=== PATIENT | male | born 1985 | race Caucasian/White ===

== ENCOUNTER 2018-07-09 01:10 | Emergency (ER) | payer OTHER ==
[2018-07-09 01:37] VITALS: BP 130/69; PULSE 82; TEMP 98.4; BMI 29.7
[2018-07-09] MEDS ORDERED: IBUPROFEN 600 MG TABLET (FP) PO ONE (02:22)
--- NOTE | 2018-07-09 02:42 | PDOC ---
History of Present Illness - General Chief Complaint: Pain Stated Complaint: CHEST INJURY/KNEE PAIN Time Seen by Provider: 07/09/18 01:51 EST - History of Present Illness Initial Comments: Sami Grant is an otherwise healthy 33yo man who presents with left-sided pleuritic rib pain and left knee pain following an injury while playing softball earlier today. He reports that he was watching for the ball and ran at full speed into a soccer goal post. He states that his head was turned to look behind him, and he did not even attempt to slow or stop before hitting the post. Mr Grant states that the entire left side of his body hurts, but he has the most pain in his left knee and left ribs. Mr Grant is able to walk, but he has significant pain in his left knee. Past History - Past Medical History Allergies/Adverse Reactions: Allergies Allergy/AdvReac Type Severity Reaction Status Date / Time No Known Allergies Allergy Verified 07/09/18 01:35 EST Home Medications: Ambulatory Orders No Home Medications 0 dose .ROUTE UTDICT 01/02/13 - Suicide/Smoking/Psychosocial Hx Smoking Status: Yes Smoking History: Unknown if ever smoked Have you smoked in the past 12 months: No Number of Cigarettes Smoked Daily: 0 Information on smoking cessation initiated: No Hx Alcohol Use: No Drug/Substance Use Hx: No Substance Use Type: None Review of Systems - Review of Systems Comments:: General: No fevers, no chills, no weight or appetite change, no malaise HEENT: No changes in vision, no changes in hearing, no congestion, no sore throat CV: No chest pain, no palpitations, no LE edema Pulm: No SOB, no cough, no wheezing GI: No nausea or vomiting, no change in bowel habits, no melena : No frequency, no urgency, no dysuria Musc: See HPI Skin: No rash, no lesions, no erythema Endo: No excessive thirst, no heat/cold intolerance Heme: No unusual bruising or bleeding, no swollen glands Neuro: No syncope, no numbness/tingling, no focal weakness Vasc: No claudication Psych: No recent change in mood, no SI or HI *Physical Exam - Vital Signs Last Vital Signs Temp Pulse Resp BP Pulse Ox 98.4 F 82 18 130/69 98 07/09/18 01:36 EST 07/09/18 01:36 EST 07/09/18 01:36 EST 07/09/18 01:36 EST 07/09/18 01:36 EST - Physical Exam Comments: General: Comfortable, no acute distress HEENT: PERRL, EOMI, MMM, voice normal, normal neck ROM, no LAD Cards: RRR, no murmur appreciated Pulm: Comfortable on room air, clear to auscultation bilaterally. TTP along left anterior lower ribs. No bruising, erythema, swelling, or abrasion. Abd: Soft, nontender, nondistended : No CVA tenderness Ext: LLE with visible mild swelling at the anterior knee along the inferior patella. TTP. No erythema, no bruising. No laxity or instability in the knee, no palpable fracture or deformity. Knee flexion limited by pain past ~80 degrees. Vasc: Extremities WWP. Palpable radial and pedal pulses bilaterally Skin: Normal color, no rashes or lesions Neuro: A&Ox3, CN grossly intact, normal speech, motor/sensory grossly intact and symmetric Psych: Mood appropriate to situation ED Treatment Course - RADIOLOGY Radiology Studies Ordered: Category Date Time Status CHEST PA & LAT [RAD] Stat Radiology 07/09/18 02:06 Ordered KNEE 3 POS-LEFT [RAD] Stat Radiology 07/09/18 02:06 Ordered Medical Decision Making - Medical Decision Making Sami Grant is a 33yo otherwise healthy man who presents to the ED following a left knee and left chest wall injury during a softball game today. - Able to walk, unlikely to be a knee fracture. Xrays of his knee ordered to r/ o - CXR and rib xrays ordered to evaluate for rib fractures or pulmonary injury including pneumothorax or effusion - Ibuprofen and percocet ordered for pain. 07/09/18 04:23 - Xrays reviewed. No fracture, pneumothorax, or pulmonary effusion - Discussed xrays with Mr Grant. Plan to discharge home with orthopedic follow up. Discussed home pain control (rest, ice, elevation, NSAIDs), follow up, and return precautions. - Mr Grant states understanding and agreement with this plan. Discussed with Dr Mcmanus. Dana Barth PGY1 *DC/Admit/Observation/Transfer Diagnosis at time of Disposition: Knee injury Qualifiers: Encounter type: initial encounter Laterality: left Qualified Code(s): S89.92XA - Unspecified injury of left lower leg, initial encounter Contusion of rib on left side Qualifiers: Encounter type: initial encounter Qualified Code(s): S20.212A - Contusion of left front wall of thorax, initial encounter - Discharge Dispostion Disposition: HOME Condition at time of disposition: Stable Decision to Admit order: No - Referrals Referrals: Korina Clark MD [Primary Care Provider] - Chema Gaspar DO [Staff Physician] - - Patient Instructions Printed Discharge Instructions: DI for Rib Contusion, DI for Knee Pain Additional Instructions: Discharge Instructions: - You were seen in the ED for a knee injury and rib pain - Xrays showed that there is no fracture or broken bones - For pain control at home, you may take 600mg or 800mg of ibuprofen (Advil, Motrin) every 6-8 hours as needed for the next 2-3 days. If you have significant pain after a few days, make an appointment to see your primary physician or follow up with orthopedics. Make sure that you take ibuprofen with food to prevent upset stomach. - For your rib pain, you may buy lidocaine patches at any pharmacy if the pain prevents you from taking a normal deep breath. These patches may be applied for 12 hours per day. - Apply ice to your knee for 20 minutes every hour - Keep your knee elevated, ideally above the level of your heart - Rest your knee as much as possible. You have been given crutches for comfort and pain control. - You have been referred to orthopedic surgery for follow up. Make an appointment for the next 2-3 days. - Seek immediate medical care if you have severe or worsening knee pain, you are unable to walk at all (even with a limp or pain is OK), or you have severe or worsening shortness of breath. - Post Discharge Activity Forms/Work/School Notes: Back to Work
== END 2018-07-09 04:32 | disposition home or self-care (01) ==
LOC: JER 01:10
DX: S20.212A Contusion of left front wall of thorax, initial encounter (principal); S89.82XA Other specified injuries of left lower leg, initial encounter; W22.8XXA Striking against or struck by other objects, initial encounter; Y93.64 Activity, baseball; Y92.320 Baseball field as the place of occurrence of the external cause; Y99.8 Other external cause status
CPT/HCPCS: 71046-TC-FY; 71101-TC-FY; 73562-TC-LT-FY; 99282-25

== ENCOUNTER 2020-10-27 04:15 | Day surgery (SDC) | payer BC ==
[2020-10-23 11:23] VITALS: BMI 31.3
[2020-10-27] MEDS ORDERED: MIDAZOLAM HCL 2 MG/2 ML SINGLE DOSE VIAL ONE ×2 (11:23)
[2020-10-27] MEDS ORDERED: PROPOFOL 20 ML ONE (11:32)
[2020-10-27 12:35] VITALS: TEMP 97.7
[2020-10-27 14:15] VITALS: BP 126/62; PULSE 55
== END 2020-10-27 14:15 | disposition home or self-care (01) ==
LOC: JASU-SURG 04:15
PROVIDERS: ATTEND Urology
PROC: 0TF3XZZ Fragmentation in Right Kidney Pelvis, External Approach (ICD-10-PCS; principal; 2020-10-27 10:30)
DX: N20.0 Calculus of kidney (principal)

== ENCOUNTER 2021-03-30 04:33 | Day surgery (SDC) | payer BC ==
[2021-03-26 16:36] VITALS: BMI 31.3
[2021-03-30] MEDS ORDERED: MIDAZOLAM HCL 2 MG/2 ML SINGLE DOSE VIAL ONE ×3 (10:24→10:51)
[2021-03-30] MEDS ORDERED: KETOROLAC TROMETHAMINE 30 MG/1 ML VIAL ONE (10:41)
[2021-03-30] MEDS ORDERED: DEXAMETHASONE SOD PHOSPHATE 4 MG/1 ML VIAL ONE (10:41)
[2021-03-30 14:16] VITALS: BP 126/77; PULSE 54; TEMP 97.6
== END 2021-03-30 13:30 | disposition home or self-care (01) ==
LOC: JASU-SURG 04:33
PROVIDERS: ATTEND Urology
PROC: 0TF4XZZ Fragmentation in Left Kidney Pelvis, External Approach (ICD-10-PCS; principal; 2021-03-30 11:00)
DX: N20.0 Calculus of kidney (principal)

== ENCOUNTER 2023-03-01 13:14 | Emergency (ER) | payer BC, OTHER ==
[2023-03-01 13:19] VITALS: BP 135/75; PULSE 56; RESP 18; TEMP 98.8; BMI 32.3
[2023-03-01] MEDS ORDERED: SODIUM CHLORIDE 1,000 ML IV STA (14:09)
[2023-03-01 15:20] LABS: BASO % 0.7 % (0-2.0); EOS % 4.7 % (0-4.5); HEMATOCRIT 45.1 % (35.4-49); HEMOGLOBIN 15.1 GM/dL (11.7-16.9); LYMPH % 40.1 % (8-40); MCH 29.4 pg (25.7-33.7); MCHC 33.5 g/dl (32.0-35.9); MEAN CELL VOLUME 87.7 fl (80-96); MEAN PLT VOLUME 11.6 fl (7.5-11.1); MONO % 7.6 % (3.8-10.2); NEUT % 46.9 % (42.8-82.8); PLATELET COUNT 211 10^3/uL (134-434); RBC 5.14 M/mm3 (4.00-5.60); RDW 13.1 % (11.9-15.9); WHITE BLOOD COUNT 7.4 K/mm3 (4.0-10.0)
[2023-03-01 15:25] LABS: INR 1.19 (0.83-1.09); PROTHROMBIN TIME (PATIENT) 13.8 SEC (9.7-13.0)
[2023-03-01 15:28] LABS: ACTIVATED PTT 31.2 SECONDS (25.2-36.5)
[2023-03-01 15:45] LABS: POTASSIUM 4.4 mmol/L (3.5-5.1)
[2023-03-01 15:47] LABS: CALCIUM 9.1 mg/dL (8.5-10.1)
[2023-03-01 15:48] LABS: ALBUMIN 4.4 g/dl (3.4-5.0); BLOOD UREA NITROGEN 10.7 mg/dL (7-18); MAGNESIUM 2.1 mg/dL (1.8-2.4)
[2023-03-01 15:51] LABS: BILIRUBIN,TOTAL 1.1 mg/dL (0.2-1)
[2023-03-01 17:17] LABS: POTASSIUM 3.8 mmol/L (3.5-5.1)
[2023-03-01 17:19] LABS: CALCIUM 8.8 mg/dL (8.5-10.1)
[2023-03-01 17:23] LABS: CREATININE 0.9 mg/dL (0.55-1.3)
[2023-03-01 17:24] LABS: TOT PROT 7.1 g/dl (6.4-8.2)
[2023-03-01 17:25] LABS: BILIRUBIN,TOTAL 0.8 mg/dL (0.2-1)
== END 2023-03-01 19:54 | disposition home or self-care (01) ==
LOC: JER 13:14
PROC: 3E0337Z Introduction of Electrolytic and Water Balance Substance into Peripheral Vein, Percutaneous Approach (ICD-10-PCS; principal; 2023-03-01)
DX: R07.89 Other chest pain (principal); R79.9 Abnormal finding of blood chemistry, unspecified; Z20.822 Contact with and (suspected) exposure to COVID-19
CPT/HCPCS: 0241U-QW; 36415; 71046-TC-FY; 80053; 83735; 84484; 85025; 85610; 85730; 93005; 93010; 99285-25

== ENCOUNTER 2024-03-26 19:27 | Emergency (ER) | payer OTHER ==
[2024-03-26 19:35] VITALS: BP 122/75; PULSE 81; RESP 18; TEMP 98; BMI 33.9
[2024-03-26] MEDS ORDERED: KETOROLAC TROMETHAMINE 30 MG/1 ML VIAL ONE (20:52)
[2024-03-26] MEDS ORDERED: LIDOCAINE 4% PATCH TP ONE (20:52)
[2024-03-26] MEDS ORDERED: ACETAMINOPHEN 500 MG TABLET (FP) ONE (20:53)
[2024-03-26] MEDS: LIDOCAINE 4% PATCH TP ONE (20:59)
[2024-03-26] MEDS: KETOROLAC TROMETHAMINE 30 MG/1 ML VIAL IM ONE (20:59)
[2024-03-26] MEDS: ACETAMINOPHEN 500 MG TABLET (FP) PO ONE (21:00)
[2024-03-27] MEDS ORDERED: LIDOCAINE PATCH REMOVAL MC SCH (09:00)
== END 2024-03-26 22:15 | disposition home or self-care (01) ==
LOC: JERFT 19:27
PROC: 3E0133Z Introduction of Anti-inflammatory into Subcutaneous Tissue, Percutaneous Approach (ICD-10-PCS; principal; 2024-03-26)
DX: M54.50 Low back pain, unspecified (principal); X50.1XXA Overexertion from prolonged static or awkward postures, initial encounter; Y93.64 Activity, baseball
CPT/HCPCS: 72100-TC-FY; 99284-25

== ENCOUNTER 2025-05-07 16:36 | Emergency (ER) | payer OTHER ==
[2025-05-07 16:40] VITALS: BP 128/83; PULSE 73; RESP 18; TEMP 98.2; BMI 32.1
[2025-05-07] MEDS ORDERED: ASPIRIN 81 MG CHEWABLE TABLETS ONE (17:43)
[2025-05-07] MEDS: ASPIRIN 81 MG CHEWABLE TABLETS PO ONE (18:02)
[2025-05-07 18:26] LABS: ABSOLUTE IMMATURE GRANULOCYTES 0.02 x10^3/uL (0.0-0.031); BASOPHILS # 0.06 x10^3/uL (0.01-0.08); EOSINOPHIL % 1.9 % (0.8-7.0); EOSINOPHILS # 0.16 x10^3/uL (0.04-0.54); MCHC 33.9 g/dl (32.3-36.5); MEAN CELL VOLUME 86.5 fl (79.0-92.2); MEAN PLT VOLUME 12.3 fl (9.4-12.4); MONOCYTE # 0.70 x10^3/uL (0.30-0.82); MONOCYTE % 8.1 % (5.3-12.2); RDW 11.8 % (12.0-15.6)
[2025-05-07 18:48] LABS: GLUCOSE,RANDOM 77.0 mg/dL (74-106)
[2025-05-07 18:49] LABS: TOT PROT 7.8 g/dl (6.4-8.2)
[2025-05-07 18:50] LABS: CO2 23.0 mmol/L (21-32)
[2025-05-07 18:52] LABS: ALK PHOS 84.0 U/L (40-150)
[2025-05-07 18:54] LABS: SGOT/AST 26.0 U/L (5-34); SGPT/ALT 35.0 U/L (0-55)
[2025-05-07 18:55] LABS: CREATININE 1.1 mg/dL (0.55-1.3)
[2025-05-08 04:04] LABS: HCV DIAGNOSTIC IN-HOUSE W/RFLX NON-REACTIVE (NONREACTIVE)
[2025-05-08 04:05] LABS: HIV INTERPRETATION NEGATIVE (NEGATIVE)
== END 2025-05-07 21:45 | disposition home or self-care (01) ==
LOC: JER 16:36
DX: R07.89 Other chest pain (principal)
CPT/HCPCS: 36415; 71046-TC-FY; 80053; 83735; 84484; 85025; 86803; 87389; 93005; 93010; 99285-25